=== PATIENT | male | born 1990 | race Caucasian/White ===

== ENCOUNTER 2024-11-21 15:47 | Emergency (ER) | payer OTHER, SELFPAY ==
[2024-11-21 15:57] VITALS: BP 140/98
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
[2024-11-21 18:51] VITALS: BP 142/88
[2024-11-21 19:40] LABS: Hematocrit 49.1 % (39.0-52.0); Hemoglobin 17.5 g/dL (13.0-18.0); Mean Corp Hgb Conc. 35.6 g/dL (33.0-37.0); Mean Corpuscular Volume 85.7 fL (80.0-94.0); Nucleated Red Blood Cells % 0 % (-); Platelet Count 347 10^3/uL (130-400); Red Cell Dist. Width 12.7 % (11.5-14.5)
[2024-11-21 19:46] LABS: ALT (SGPT) 36 U/L (0-50); AST (SGOT) 22 U/L (17-59); Albumin 5.3 g/dl (3.5-5.0); Alkaline Phosphatase 80 U/L (38-126); Blood Urea Nitrogen 13 mg/dl (9-20); Calcium 10.1 mg/dl (8.4-10.2); Carbon Dioxide 29 mmol/L (22-30); Chloride 101 mmol/L (98-107); Glucose 102 mg/dl (70-99); Potassium 4.6 mmol/L (3.5-5.1); Sodium 139 mmol/L (135-145); Total Protein 8.3 g/dl (6.3-8.2); eGFR > 60.00
[2024-11-21] MEDS: ATIVAN 1 MG PO (20:22)
[2024-11-22 00:14] VITALS: BP 120/85
== END 2024-11-22 00:15 ==
LOC: EMR 15:47
PROVIDERS: Physician Assistant; EMERGENCY PHYSICIAN Student in an Organized Health Care Education/Training Program; FAMILY PHYSICIAN Family Medicine
DX: F30.9 Manic episode, unspecified (principal); F41.9 Anxiety disorder, unspecified; F90.9 Attention-deficit hyperactivity disorder, unspecified type; T42.4X6A Underdosing of benzodiazepines, initial encounter; T43.226A Underdosing of selective serotonin reuptake inhibitors, initial encounter; Z91.128 Patient's intentional underdosing of medication regimen for other reason; Z56.0 Unemployment, unspecified; Z63.0 Problems in relationship with spouse or partner; Z59.819 Housing instability, housed unspecified; Z59.86 Financial insecurity
CPT/HCPCS: 99283; 80053; 80306; 84443; 85025